=== PATIENT | female | born 1965 | race Caucasian/White ===

== ENCOUNTER → 2019-11-13 14:41 | Outpatient (CLI) | payer BC, SELFPAY ==
--- NOTE | ~2019-11-13 | MM_ITS ---
EXAMINATION: MM screening yasemin BI w dee dee HISTORY: Screening mammogram, family history of breast cancer in her mother. TECHNIQUE: Craniocaudal and mediolateral oblique 3-D tomosynthesis images were obtained and synthetic 2-D images were generated. CAD analysis was submitted and interpreted. COMPARISON: 11/07/2018, 10/13/2017, 07/06/2016 BREAST PARENCHYMAL COMPOSITION: The breasts are extremely dense, which lowers the sensitivity of mamm ography. FINDINGS: RIGHT BREAST: There is no evidence of suspicious mass, calcification, or architectural distortion to suggest malignancy. There has been no significant interval change. LEFT BREAST: There are possible masses in the posterior third of the breast which are best appreciate d 8.6 cm and 8.0 cm from the nipple on the mediolateral oblique view. IMPRESSION: 1. Possible left breast masses. 2. Additional mammographic views and possible breast ultrasound are recommended. BI-RADS Category 0: Incomplete: Needs additional imaging evaluation. Reviewed, dictated and finalized at location A. IMPRESSION: 1. Possible left breast masses. 2. Additional mammographic views and possible breast ultrasound are recommended . BI-RADS Category 0: Incomplete: Needs additional imaging evaluation.
== END ==
PROVIDERS: PCP Family Medicine; Visit Provider Family Medicine
DX: Z12.31 Encounter for screening mammogram for malignant neoplasm of breast (principal); R92.8 Other abnormal and inconclusive findings on diagnostic imaging of breast
CPT/HCPCS: 77063; 77067

== ENCOUNTER → 2019-12-04 09:12 | Outpatient (CLI) | payer BC, SELFPAY ==
--- NOTE | ~2019-12-04 | MMUS_ITS ---
EXAMINATION: MM diagnostic mammo unilat LT, US breast LT complete HISTORY: Possible posterior left breast masses reported on 11/13/2019 bilateral digital screening mamm ogram MLO view TECHNIQUE: Additional 3-D tomosynthesis images of the left breast were performed and synthetic 2-D im ages were generated. CAD analysis was submitted and interpreted. High resolution complete left breast ultrasound was performed. COMPARISON: 11/09/2019 bilateral digital screening mammogram BREAST PARENCHYMAL COMPOSITION: The breasts are extremely dense, which lowers the sensitivity of mamm ography. FINDINGS: MAMMOGRAPHIC FINDINGS: No reproducible mass is evident mammographically on these supplemental full field ML, spot ML and MLO Tomosynthesis views. A few benign calcifications are noted. ULTRASOUND: There is no evidence of focal abnormal solid or cystic lesion or suspicious shadowing of the left navid ast IMPRESSION: 1. No mammographic evidence of malignancy 2. Routine mammographic screening is recommended. BI-RADS Category 2: Benign finding(s). Reviewed, dictated and finalized at location A. IMPRESSION: 1. No mammographic evidence of malignancy 2. Routine mammographic screening is recommended. BI-RADS Category 2: Benign finding(s).
== END ==
PROVIDERS: PCP Family Medicine; Visit Provider Physician Assistant
DX: R92.8 Other abnormal and inconclusive findings on diagnostic imaging of breast (principal)
CPT/HCPCS: 76641; 77065

== ENCOUNTER → 2021-11-04 15:44 | Outpatient (CLI) | payer BC, SELFPAY ==
--- NOTE | ~2021-11-04 | MM_ITS ---
EXAMINATION: MM screening yasemin BI w dee dee HISTORY: Screening mammogram TECHNIQUE: Craniocaudal and mediolateral oblique 3-D tomosynthesis images were obtained and synthetic 2-D images were generated. Bilateral rotated lateral craniocaudal views. CAD analysis was submitted and interpreted. COMPARISON: 12/04/2019 diagnostic left mammogram and complete left breast ultrasound examination 11/09/2019, 11/07/2018, 10/13/2017 bilateral screening mammogram examinations BREAST PARENCHYMAL COMPOSITION: The breasts are extremely dense, which lowers the sensitivity of mamm ography. FINDINGS: Scattered bilateral punctate benign microcalcifications and a left benign calcified microhematoma are noted. New grouped microcalcifications are noted in the posterior central right breast on CC view. Diagnosti c right mammogram with magnification views is recommended. There is focal asymmetry at the posterior upper right breast on MLO view; diagnostic right mammogram with spot compression views and ultrasound if necessary is recommended to differentiate summation of superimposed fibroglandular stroma from small mass. Otherwise there is no evidence of suspicious mass, calcification, or architectural distortion to sugg est malignancy in either breast. There has been no other suspicious interval change. IMPRESSION: 1. Focal asymmetry in the posterior upper right breast on MLO view and new subtle grouped microcalcif ications in the posterior central right breast on CC projection 2. Diagnostic right mammogram with compression and magnification views and right breast ultrasound ex amination if necessary are recommended BI-RADS Category 0: Incomplete: Needs additional imaging evaluation. Reviewed, dictated and finalized at location A. IMPRESSION: 1. Focal asymmetry in the posterior upper right breast on MLO view and new subt le grouped microcalcifications in the posterior central right breast on CC proj ection 2. Diagnostic right mammogram with compression and magnification views and righ t breast ultrasound examination if necessary are recommended BI-RADS Category 0: Incomplete: Needs additional imaging evaluation.
== END ==
PROVIDERS: PCP Nurse Practitioner Obstetrics & Gynecology; Visit Provider Nurse Practitioner Obstetrics & Gynecology
DX: Z12.31 Encounter for screening mammogram for malignant neoplasm of breast (principal); R92.8 Other abnormal and inconclusive findings on diagnostic imaging of breast
CPT/HCPCS: 77063; 77067

== ENCOUNTER → 2022-01-06 07:57 | Outpatient (CLI) | payer BC, SELFPAY ==
--- NOTE | ~2022-01-06 | MMUS_ITS ---
EXAMINATION: MM diagnostic yasemin RT w dee dee, US breast RT complete HISTORY: Follow-up right breast asymmetry and microcalcifications TECHNIQUE: Additional 3-D tomosynthesis images of the right breast were performed and synthetic 2-D i mages were generated. CAD analysis was submitted and interpreted. High resolution complete right harshil st ultrasound was performed. COMPARISON: Comparison to multiple prior studies sequentially, with oldest reviewed study dated 07/06. BREAST PARENCHYMAL COMPOSITION: The breasts are extremely dense, which lowers the sensitivity of mamm ography FINDINGS: MAMMOGRAPHIC FINDINGS: There are benign-appearing right breast calcifications. There are scattered nodular densities in the right breast which are obscured by fibroglandular tissue. No discrete mass identified. ULTRASOUND: Complete right breast US of all 4 quadrants of the breasts and retroareolar region was reviewed. At 1 2:00, 4 cm from the nipple there is a 3 mm cyst. At 11:00, 5 cm from the nipple there is a 2 mm cyst. At 3:00, 3 cm from the nipple there is an oval hypoechoic 3 mm mass, likely benign. IMPRESSION: 1. Probable benign right breast mass at 3:00, 3 cm from the nipple. 2. Recommend 6 month follow-up diagnostic right mammogram and ultrasound BI-RADS category 3, probably benign findings. Reviewed, dictated and finalized at location A. IMPRESSION: 1. Probable benign right breast mass at 3:00, 3 cm from the nipple. 2. Recommend 6 month follow-up diagnostic right mammogram and ultrasound BI-RADS category 3, probably benign findings.
== END ==
PROVIDERS: PCP Family Medicine; Visit Provider Nurse Practitioner Obstetrics & Gynecology
DX: R92.8 Other abnormal and inconclusive findings on diagnostic imaging of breast (principal)
CPT/HCPCS: 76641; 77061; 77065; G0279

== ENCOUNTER 2024-08-22 12:08 | Outpatient (CLI) | payer BC, SELFPAY ==
--- NOTE | ~2024-08-22 | MM_ITS ---
EXAMINATION: MM screening yasemin BI w dee dee HISTORY: Screening mammogram, family history of breast cancer in her mother. TECHNIQUE: Craniocaudal and mediolateral oblique 3-D tomosynthesis images were obtained and synthetic 2-D images were generated. CAD analysis was submitted and interpreted. COMPARISON: 11/04/2021 through 07/06/2016 BREAST PARENCHYMAL COMPOSITION: The breasts are extremely dense, which lowers the sensitivity of mamm ography. FINDINGS: There is no evidence of suspicious mass, calcification, or architectural distortion to sug gest malignancy. There has been no significant interval change. IMPRESSION: 1. No mammographic evidence of malignancy in either breast. 2. Recommend routine screening mammography in one year. BI-RADS Category 1: Negative Reviewed, dictated and finalized at location B.
== END 2024-08-22 12:09 | disposition home or self-care (01) ==
LOC: MICIMG 12:09
PROVIDERS: PCP Family Medicine; Visit Provider Student in an Organized Health Care Education/Training Program
DX: Z12.31 Encounter for screening mammogram for malignant neoplasm of breast (principal)
CPT/HCPCS: 77063; 77067